=== PATIENT | female | born 1965 | race African-American/Black ===

== ENCOUNTER 2020-01-05 11:10 | Outpatient (CLI) | payer BC ==
[~2020-01-05 11:10] MED LIST: Iopamidol-370 76% 500 ML 1 ML ONE
--- NOTE | 2020-01-05 13:53 | CT ---
CT ABDOMEN AND PELVIS WITH ORAL AND IV CONTRAST: HISTORY: Left lower quadrant pain, functional dyspepsia. Gastroesophageal reflux disease. COMPARISON: None. FINDINGS: The lung bases are clear. No calcified gallstones are seen. The liver, spleen, pancreas, and left k idney appear normal. There is a 15 mm nodular density in the left adrenal gland. A 1 cm low-density lesion in the upper r ight kidney cannot be satisfactorily characterized. There is asymmetric enlargement of the right adr enal gland. No free air, free fluid, or lymphadenopathy is seen in the abdomen or pelvis. The small bowel loops are not abnormally dilated. No osteolytic or osteoblastic lesions are seen. The patient is post hys terectomy. There is no evidence of aneurysmal dilatation of the abdominal aorta. IMPRESSION: Indeterminate left adrenal nodule and right renal lesion. These should be evaluated with MRI (with a nd without IV contrast). POS: [facility]
== END 2020-01-05 11:11 | disposition home or self-care (01) ==
LOC: BICCT 11:10
PROVIDERS: ATTEND Internal Medicine Gastroenterology
DX: K21.9 Gastro-esophageal reflux disease without esophagitis (principal); R10.32 Left lower quadrant pain; K30 Functional dyspepsia
CPT/HCPCS: 74177; Q9967

== ENCOUNTER 2020-01-18 10:04 | Outpatient (CLI) | payer BC ==
--- NOTE | 2020-01-18 12:26 | MRI ---
MRI ABDOMEN WITH AND WITHOUT CONTRAST: Date: 01/18/2020 HISTORY: R93.[address] COMPARISON: CT abdomen and pelvis dated 01/05/2020. FINDINGS: No significant pleural fluid. No pericardial effusion. Corresponding to the recently described abnormality of the superior pole of the right kidney is a non enhancing simple cyst with very high intrinsic T2 signal measuring 8.0 mm. There is washout signal on the left adrenal mass indicating adrenal adenoma which measures approximat breanna 12.0 mm. No hydronephrosis. There are smaller cortical cysts of both kidneys measuring 3-4 mm inferior pole. Spleen is unremarkable. No abnormal enhancing hepatic mass. Pancreas is unremarkable. Aortic contour is nonaneurysmal. No retroperitoneal or periaortic adenopath y. Pancreas and spleen are unremarkable. No intrahepatic or extrahepatic biliary dilatation. No hydronep hrosis. IMPRESSION: 1. Corresponding to the recent CT findings is a benign left adrenal adenoma and benign superior righ t renal cyst. 2. No acute inflammatory process. 3. No suspicious abnormality. POS: HOME
== END 2020-01-18 10:05 | disposition home or self-care (01) ==
LOC: SCSMRI 10:04
PROVIDERS: ATTEND Internal Medicine Gastroenterology
DX: R93.3 Abnormal findings on diagnostic imaging of other parts of digestive tract (principal); N28.1 Cyst of kidney, acquired; D35.02 Benign neoplasm of left adrenal gland
CPT/HCPCS: 74183